=== PATIENT | male | born 1950 | race Caucasian/White ===

== ENCOUNTER 2022-10-11 16:59 | Emergency (ER) | payer OTHER, MEDICAID ==
[~2022-10-11] VITALS: Ht 170.2 cm; Wt 90.7 kg
--- NOTE | 2022-10-11 18:00 | NUR ---
PT brought in by BLS from homeless. Chief Complaint cold skin, environment raining, pt without mcc, pt elderly, denies food, denies medication, awake and oriented x3.
--- NOTE | 2022-10-11 19:30 | NUR ---
Patient refusing pain medication and vital signs at this time. Patient states "I dont want nothing. I can just sleep here for now. I dont take drugs and I dont want no needles anywhere near me. I can sleep it off if you can just give me a blanket." ER MD Cameron made aware.
--- NOTE | 2022-10-11 19:30 | NUR ---
Received report from RAFIQ Ochoa; assuming care of patient at this time.
--- NOTE | 2022-10-11 19:30 | NUR ---
BASIA Cameron at bedside.
--- NOTE | 2022-10-11 19:39 | NUR ---
Patient sleeping in bed with safety precautions in place, VSS. Patient near nurse's station at this time. Nad noted at this time.
--- NOTE | 2022-10-11 21:26 | NUR ---
Patient awake and ambulating to restroom Patient still refusing vitals at this time.
--- NOTE | 2022-10-12 00:48 | NUR ---
covid swab done and sent to lab
--- NOTE | 2022-10-12 02:00 | NUR ---
BASIA BOUDREAUX Sin at bedside.
--- NOTE | 2022-10-12 02:26 | NUR ---
Lab at bedside; patient agreeing to have blood drawn at this time.
--- NOTE | 2022-10-12 02:30 | NUR ---
Patient allowing staff to take vital signs at this time. Patient A/Ox3, VSS. Patient resting comfortably in bed with safety precautions in place. Nad noted a this time.
[2022-10-12 02:33] VITALS: BP_SYST 166
[2022-10-12 02:33] LABS: BASOPHILS # (AUTO) 0.1 K/uL (0.0-0.2); BASOPHILS % (AUTO) 0.9 % (0.0-2.0); EOSINOPHILS # (AUTO) 0.2 K/uL (0.0-0.4); EOSINOPHILS % (AUTO) 2.9 % (0.0-4.0); HEMATOCRIT 39.1 % (36-54); HEMOGLOBIN 12.9 g/dL (14.0-18.0); LYMPHOCYTES # (AUTO) 1.9 K/uL (1.0-5.5); LYMPHOCYTES % (AUTO) 28.6 % (20.5-51.5); MEAN CORPUSCULAR HEMOGLOBIN 32 pg (27-31); MEAN CORPUSCULAR HGB CONC 33 % (32-36); MEAN CORPUSCULAR VOLUME 98 fL (79.0-98.0); MONOCYTES # (AUTO) 0.6 K/uL (0.0-1.0); MONOCYTES % (AUTO) 9.2 % (1.7-9.3); NEUTROPHILS # (AUTO) 3.8 K/uL (1.8-7.7); NEUTROPHILS % (AUTO) 58.4 % (40.0-70.0); PLATELET COUNT (AUTO) 199 K/uL (130-430); RED CELL DISTRIBUTION WIDTH 13.8 % (9.0-15.0); WHITE BLOOD COUNT (AUTO) 6.5 K/uL (4.8-10.8)
[2022-10-12 02:46] LABS: ANION GAP 7 (5-15); CALCIUM 8.9 mg/dL (8.4-11.0); CHLORIDE 106 mmol/L (98-107); CREATININE 0.92 mg/dL (0.55-1.30); GLUCOSE 95 mg/dL (70-99); UREA NITROGEN, BLOOD 21 mg/dL (8-21)
[2022-10-12 02:50] LABS: GFR AFRICAN AMERICAN 105 mL/min (>90)
[2022-10-12 02:51] LABS: ACETAMINOPHEN < 1 ug/mL (1-30); ALANINE AMINOTRANSFERASE 17 U/L (12-78); ALBUMIN 3.1 g/dL (3.4-4.8); ASPARTATE AMINOTRANSFERASE 20 U/L (10-37); TOTAL BILIRUBIN 0.4 mg/dL (0.0-1.0)
[2022-10-12 02:52] LABS: ALCOHOL, BLOOD < 3 mg/dL (<10)
--- NOTE | 2022-10-12 05:49 | NUR ---
Attempted to give patient given written and verbal discharge instructions at this time. Patient was given list of available shelters in surrounding areas and is refusing offer of intermediate placement at this time. Patient states "I didnt ask to come here, you guys made me come here. Just so you know I'm not signing any discharge paperwork or going to any intermediate you guys are telling me about. Im not doing any of that. Im gonna sit right here in the waiting room." Patient is agitated and hostile towards staff. ER MD Melton and charge nurse made aware.
[2022-10-12 05:50] VITALS: BP_SYST 166
== END 2022-10-12 05:50 | disposition home or self-care (01) ==
LOC: SED 16:59
DX: R53.1 Weakness (principal); M79.605 Pain in left leg; M79.604 Pain in right leg; Z59.00 Homelessness unspecified; Z79.899 Other long term (current) drug therapy; Z20.822 Contact with and (suspected) exposure to COVID-19
CPT/HCPCS: 99283; 87426; 80053; 82550; 85025; 36415; G0482; G0480; G0481